=== PATIENT | female | born 1985 | race Caucasian/White ===

== ENCOUNTER 2019-03-02 23:35 | Emergency (ER) | payer MEDICAID ==
[~2019-03-02] VITALS: Ht 154.9 cm; Wt 84.0 kg
[2019-03-03 03:45] VITALS: BP 136/79
[2019-03-03 03:49] LABS: CLARITY URINE CLEAR (CLEAR); COLOR URINE YELLOW (YELLOW); KETONES URINE TRACE (NEGATIVE); LEUKOCYTE ESTERASE URINE NEGATIVE (NEGATIVE); NITRITE URINE NEGATIVE (NEGATIVE); OCCULT BLOOD URINE NEGATIVE (NEGATIVE); PH URINE 6.5 (4.5-8.0); PROTEIN URINE NEGATIVE (NEGATIVE); SPECIFIC GRAVITY URINE 1.025 (1.005-1.030)
[2019-03-03] MEDS ORDERED: MECLIZINE 12.5MG TABLET PO NR (04:30)
== END 2019-03-03 05:51 | disposition home or self-care (01) ==
LOC: ER 23:35
DX: R42 Dizziness and giddiness (principal); Z98.890 Other specified postprocedural states
CPT/HCPCS: 81003; 81025; 99283; J8597

== ENCOUNTER 2020-11-19 03:16 | Emergency (ER) | payer MEDICAID ==
[~2020-11-19] VITALS: Ht 154.9 cm; Wt 88.0 kg
[2020-11-19] MEDS ORDERED: CEPH500C2 MT (06:01)
[2020-11-19 06:05] VITALS: BP 160/88
== END 2020-11-19 06:15 | disposition home or self-care (01) ==
LOC: ER 03:16
DX: S01.511A Laceration without foreign body of lip, initial encounter (principal); S03.2XXA Dislocation of tooth, initial encounter; Z98.890 Other specified postprocedural states; X58.XXXA Exposure to other specified factors, initial encounter; Y93.89 Activity, other specified; Y92.89 Other specified places as the place of occurrence of the external cause; Y99.8 Other external cause status
CPT/HCPCS: 99282; 99283